=== PATIENT | female | born 1995 | race Caucasian/White ===

== ENCOUNTER 2019-11-14 09:20 | Emergency (ER) | payer OTHER ==
[~2019-11-14] VITALS: Ht 162.6 cm; Wt 97.1 kg
[2019-11-14 09:22] VITALS: Ht 162.6 cm; Wt 97.1 kg
[2019-11-14 11:48] VITALS: BP 128/84
== END 2019-11-14 11:48 | disposition home or self-care (01) ==
LOC: ED 09:20
DX: J02.9 Acute pharyngitis, unspecified (principal); R11.10 Vomiting, unspecified; E66.9 Obesity, unspecified; Z68.36 Body mass index [BMI] 36.0-36.9, adult; Z20.828 Contact with and (suspected) exposure to other viral communicable diseases
CPT/HCPCS: Q0162